=== PATIENT | female | born 1990 | race Caucasian/White ===

== ENCOUNTER 2016-08-04 10:25 | Emergency (ER) | payer BC ==
--- NOTE | 2016-08-04 13:04 | UC ---
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 which resulted in bilateral leg pain and weakness Had a L3-4 decompressive laminectomy and discetomy - History of Current Complaint Chief Complaint: UCBackPain Stated Complaint: BACK PAIN Time Seen by Provider: 08/04/16 12:36 Hx Last Menstrual Period: Irregular - Has Nexplanon Onset/Duration: Sudden Onset, Lasting Days Timing: Constant Severity Initially: Moderate Severity Currently: Moderate Pain Intensity: 8 Pain Scale Used: 0-10 Numeric Back Pain: Is Diffuse Aggravating: Movement, Lifting, Bending Alleviating: Nothing Associated Signs And Symptoms: Positive: Weakness, Numbness, Tingling, Other - doesn't feel normal when she urinates....no incontinence Related History: Previous Back Injury - Risk Factors Cauda Equina Risk Factors: Bladder Dysfunction, Lower Extemity Numbness, Lower Extremity Weakness - Allergies/Home Medications Allergies/Adverse Reactions: Allergies Allergy/AdvReac Type Severity Reaction Status Date / Time Penicillins Allergy Intermediate Rash Verified 08/04/16 12:22 Latex Allergy Hives Verified 08/04/16 12:22 Sulfamethoxazole Allergy Itching Verified 08/04/16 12:22 w/Trimethoprim [From Bactrim] Home Medications: Home Medications HYDROcodone/ACETAMIN 5-325 MG* [[place] 5-325 TAB*] 1 tab PO Q4H PRN 08/04/16 [ History Confirmed 08/04/16] Tizanidine HCl 2 mg PO TID PRN 08/04/16 [History Confirmed 08/04/16] PMH/Surg Hx/FS Hx/Imm Hx Previously Healthy: Yes Endocrine History Of: Denies: Diabetes Cardiovascular History Of: Denies: Hypertension, Pacemaker/ICD GI/ History Of: Denies: Renal Disease Neurological History Of: Reports: Migraine - Surgical History Surgical History: Yes Surgery Procedure, Year, and Place: L3 L4 Disectomy, 2013, [facility] [place]; Appenedtomy, 2013, [place] - Family History Known Family History: Negative: Seizure Disorder, Blood Disorder - Social History Alcohol Use: Occasionally Alcohol Amount: couples times/mo Substance Use Type: None Smoking Status (MU): Never Smoked Tobacco - Immunization History Most Recent Influenza Vaccination: February 2016 Most Recent Tetanus Shot: 2014 Most Recent Pneumonia Vaccination: never Review of Systems Constitutional: Negative Skin: Negative Eyes: Negative ENT: Negative Respiratory: Negative Cardiovascular: Negative Gastrointestinal: Negative Genitourinary: Negative Motor: Negative Neurovascular: Negative Musculoskeletal: Arthralgia, Myalgia Neurological: Negative, Weakness, Paresthesia, Numbness Psychological: Negative All Other Systems Reviewed And Are Negative: Yes Physical Exam Triage Information Reviewed: Yes Appearance: Well-Appearing, No Pain Distress, Well-Nourished Vital Signs: Initial Vital Signs Temp 98.8 F 08/04/16 12:17 Pulse 100 08/04/16 12:17 Resp 18 08/04/16 12:17 BP 125/80 08/04/16 12:17 Pulse Ox 99 08/04/16 12:17 Vital Signs Reviewed: Yes Eyes: Positive: Conjunctiva Clear ENT: Positive: Hearing grossly normal. Negative: Nasal congestion, Nasal drainage, Tonsillar exudate, Trismus, Muffled/hoarse voice Neck: Positive: Supple, Nontender, No Lymphadenopathy Respiratory: Positive: Lungs clear, Normal breath sounds, No respiratory distress Cardiovascular: Positive: RRR, No Murmur, Pulses Normal Musculoskeletal: Positive: ROM Intact, No Edema Neurological: Positive: Other: - trouble getting out of chair/ decreased knee jerks/absent ankle DTRs Psychological Exam: Normal Skin Exam: Normal Back Pain Course/Dx - Course Course Of Treatment: I fell this pt needs an MRI. She request getting sent to [facility]. declines EMS transfer. Friend driving. [facility] notified - Differential Dx/Diagnosis Provider Diagnoses: back pain. R/o caudal equina syndrome Discharge - Discharge Plan Condition: Stable Disposition: AGAINST MEDICAL ADVICE Referrals: Yajaira Heredia MD [Primary Care Provider] - Images Front/Back of Body, Lg ([place]): 1 - 3 injection sites/tender midline, no erthema
[2016-08-04 13:09] VITALS: BP 136/85
== END 2016-08-04 13:10 | disposition left against medical advice (07) ==
LOC: UCCORT 10:25
DX: M54.5 Low back pain (principal); R20.0 Anesthesia of skin; R53.1 Weakness; Z88.0 Allergy status to penicillin; Z88.2 Allergy status to sulfonamides
CPT/HCPCS: 99213; G0463

== ENCOUNTER 2016-09-19 16:44 | Emergency (ER) | payer BC ==
[2016-09-19 17:26] VITALS: BP 146/91
--- NOTE | 2016-09-19 18:31 | UC ---
Skin Complaint HPI - HPI Summary HPI Summary: BOIL FOR FOUR DAYS ON LEFT LOWER ABDOMEN, OPENED UP AND DRAINED PUS TODAY. NO FEVER, NO INJURY. NO HX OR MRSA. HAS NOT HAPPENED BEFORE. - History of Current Complaint Chief Complaint: UCSkin Time Seen by Provider: 09/19/16 17:57 Stated Complaint: SKIN CONCERN Hx Obtained From: Patient Hx Last Menstrual Period: Irregular - Has Nexplanon Onset/Duration: Sudden Onset, Lasting Days, Still Present, Worse Since - TODAY Location: Discrete - LEFT LOWER ABDOMEN Character: Swelling, Redness, Raised, Painful Aggravating: Nothing Alleviating: Nothing Associated Signs & Symptoms: Positive: Drainage - LEFT ABDOMEN, Tenderness - LEFT ABDOMEN. Negative: Fever, Chills - Allergy/Home Medications Allergies/Adverse Reactions: Allergies Allergy/AdvReac Type Severity Reaction Status Date / Time Penicillins Allergy Intermediate Rash Verified 09/19/16 17:26 Latex Allergy Hives Verified 09/19/16 17:26 Sulfamethoxazole Allergy Itching Verified 09/19/16 17:26 w/Trimethoprim [From Bactrim] Review of Systems Constitutional: Negative Skin: Other - ACESS DRAINING LEFT LOWER ABDOMEN Eyes: Negative ENT: Negative Respiratory: Negative Cardiovascular: Negative Gastrointestinal: Negative Genitourinary: Negative Motor: Negative Neurovascular: Negative Musculoskeletal: Negative Neurological: Negative Psychological: Negative All Other Systems Reviewed And Are Negative: Yes PMH/Surg Hx/FS Hx/Imm Hx Previously Healthy: Yes Endocrine History Of: Denies: Diabetes Cardiovascular History Of: Denies: Hypertension, Pacemaker/ICD GI/ History Of: Denies: Renal Disease Neurological History Of: Reports: Migraine - Surgical History Surgical History: Yes Surgery Procedure, Year, and Place: L3 L4 Disectomy, 2013, [facility] [place]; Appenedtomy, 2013, [place] - Family History Known Family History: Negative: Seizure Disorder, Blood Disorder - Social History Occupation: Employed Full-time - [employer] Lives: With Family Alcohol Use: Occasionally Alcohol Amount: couples times/mo Substance Use Type: None Smoking Status (MU): Never Smoked Tobacco - Immunization History Most Recent Influenza Vaccination: February 2016 Most Recent Tetanus Shot: 2014 Most Recent Pneumonia Vaccination: never Physical Exam Triage Information Reviewed: Yes Appearance: Well-Appearing, No Pain Distress, Well-Nourished Vital Signs: Initial Vital Signs Temp 97.0 F 09/19/16 17:22 Pulse 91 09/19/16 17:22 Resp 16 09/19/16 17:22 BP 146/91 09/19/16 17:22 Pulse Ox 100 09/19/16 17:22 Vital Signs Reviewed: Yes Eye Exam: Normal ENT Exam: Normal ENT: Positive: Normal ENT inspection, Hearing grossly normal, Pharynx normal, TMs normal Dental Exam: Normal Neck exam: Normal Neck: Positive: Supple, Nontender Respiratory Exam: Normal Respiratory: Positive: Chest non-tender, Lungs clear, Normal breath sounds, No respiratory distress Cardiovascular Exam: Normal Cardiovascular: Positive: RRR, No Murmur, Pulses Normal Abdomen Description: Positive: No Organomegaly, Soft, Other: - ABSCESS LEFT LOWER ABDOMEN Musculoskeletal Exam: Normal Musculoskeletal: Positive: Strength Intact, ROM Intact Neurological Exam: Normal Psychological Exam: Normal Skin: Positive: Other - ABSCESS LEFT LOWER ABDOMEN Course/Dx - Differential Diagnoses - Skin Complaint Differential Diagnoses: Abscess, Cellulitis, Impetigo, MRSA - Diagnoses Provider Diagnoses: DRAINING ABSCESS WITH CELLULITIS LEFT LOWER ABDOMEN Discharge - Discharge Plan Condition: Stable Disposition: HOME Prescriptions: DOXYcycline CAP(*) [DOXYcycline 100MG CAP(*)] 100 mg PO BID #20 cap Patient Education Materials: Abscess (ED) Referrals: Yajaira Heredia MD [Primary Care Provider] - Images Front/Back of Body, Lg ([place]): 1 - DRAINING ABSCESS HERE
== END 2016-09-19 18:27 | disposition home or self-care (01) ==
LOC: UCCORT 16:44
DX: L02.211 Cutaneous abscess of abdominal wall (principal)
CPT/HCPCS: 87070; 87077; 87186; 87205; 87640; 87641; 99212; G0463

== ENCOUNTER 2016-09-22 17:56 | Emergency (ER) | payer BC | END 2016-09-22 19:54 | disposition left against medical advice (07) | LOC: UCCORT 17:56 | DX: L98.9 Disorder of the skin and subcutaneous tissue, unspecified (principal); Z53.21 Procedure and treatment not carried out due to patient leaving prior to being seen by health care provider ==